=== PATIENT | female | born 1995 | race Hispanic/Latino ===

== ENCOUNTER 2019-12-31 09:49 | Emergency (ER) | payer SELFPAY ==
[~2019-12-31] VITALS: Ht 154.9 cm; Wt 73.7 kg
[2019-12-31 11:39] VITALS: O2SAT 95
[2019-12-31 12:02] LABS: BASO % 0.2 % (0.0-1.0); EOS % 0.1 % (0.0-3.0); HEMATOCRIT 42.6 % (36.0-47.0); HEMOGLOBIN 13.7 g/dl (12.0-15.5); LYMPH # 1.1 10^3/uL (1.5-5.0); LYMPH % 8.3 % (24.0-44.0); MEAN CORPUSCULAR HEMOGLOBIN 27.8 pg (27.0-33.0); MEAN CORPUSCULAR HGB CONC 32.2 g/dl (32.0-36.5); MEAN CORPUSCULAR VOLUME 86.4 fl (80.0-96.0); MONO # 0.8 10^3/uL (0.0-0.8); MONO % 5.8 % (0.0-5.0); NEUTROPHILS # 11.3 10^3/uL (1.5-8.5); NEUTROPHILS % 85.3 % (36.0-66.0); PLATELET COUNT, AUTOMATED 249 10^3/uL (150-450); RED BLOOD COUNT 4.93 10^6/uL (4.00-5.40); WHITE BLOOD COUNT 13.2 10^3/uL (4.0-10.0)
[2019-12-31 12:40] LABS: ALBUMIN 3.6 GM/DL (3.2-5.2); ALT/SGPT 15 U/L (12-78); BILIRUBIN,TOTAL 0.3 MG/DL (0.2-1.0); BLOOD UREA NITROGEN 13 MG/DL (7-18); CALCIUM LEVEL 9.1 MG/DL (8.5-10.1); CARBON DIOXIDE LEVEL 27 MEQ/L (21-32); CHLORIDE LEVEL 106 MEQ/L (98-107); CK-MB VALUE MASS < 1.0 NG/ML (<3.6); CPK CREATINE PHOSPHOKINASE 58 U/L (26-192); CREATININE FOR GFR 0.84 MG/DL (0.55-1.30); GLOMERULAR FILTRATION RATE > 60.0 (>60); GLUCOSE, FASTING 85 MG/DL (70-100); LDH LACTATE DEHYDROGENASE 175 U/L (84-246); MB/CK RELATIVE INDEX 1.72 (< OR =4); POTASSIUM SERUM 3.7 MEQ/L (3.5-5.1); SODIUM LEVEL 140 MEQ/L (136-145); TOTAL PROTEIN 6.8 GM/DL (6.4-8.2); TROPONIN I < 0.02 NG/ML (< 0.10)
[2019-12-31 12:48] LABS: HCG, SERUM QUALITATIVE NEGATIVE (NEGATIVE)
[2019-12-31 12:52] LABS: INFLUENZA A AMPLIFICATION NEGATIVE (NEGATIVE); INFLUENZA B AMPLIFICATION NEGATIVE (NEGATIVE)
--- NOTE | 2019-12-31 13:28 | REP ---
INDICATION: Coronavirus workup. COMPARISON: None. TECHNIQUE: Upright AP portable radiograph. FINDINGS: The lungs are well inflated and clear. The pleural angles are sharp. Heart size is normal. Pulmonary vasculature is not increased. No infiltrate is seen. No bony abnormality. IMPRESSION: Negative portable chest x-ray. <Electronically signed by Santo Pinzon > 12/31/19 [id number]
[2019-12-31] MEDS ORDERED: ACETAMINOPHEN 500 MG TAB PO ONE (13:45)
[2019-12-31 14:13] LABS: MONO REFLEX EBV COMP NEGATIVE (NEGATIVE)
[2019-12-31 15:07] VITALS: BP 131/69
[2020-01-02 15:08] LABS: EBV AB TO NUCLEAR ANTIGEN <18.0 U/mL (0.0-17.9); EBV VIRAL CAPSID AG IgG >600.0 U/mL (0.0-17.9); EBV VIRAL CAPSID AG IgM <36.0 U/mL (0.0-35.9)
--- NOTE | 2020-01-04 09:59 | ED PDOC ---
Post-Departure Follow-Up called patient to update on negative COVID-19 test. all questions addressed. , PAC JANICE GUNDERSON PA-C Jan 04, 2020 09:59
== END 2019-12-31 15:08 | disposition home or self-care (01) ==
LOC: M ED 09:49
DX: R73.03 Prediabetes (principal); Z77.098 Contact with and (suspected) exposure to other hazardous, chiefly nonmedicinal, chemicals
CPT/HCPCS: 36415; 71045; 80053; 81001; 82550; 82553; 83615; 84484; 84703; 85025; 86308; 86664; 86665; 87631; 87880; 99284; U0003